=== PATIENT | male | born 1975 | race Two or more races ===

== ENCOUNTER → 2024-02-09 | Outpatient (CLI) | payer MEDICAID ==
[~2024-02-09] VITALS: Ht 170.2 cm; Wt 68.0 kg
[~2024-02-09] MED LIST: GLIP10TA21; INSUPOW; LISI-275; METF100097; OMEG100062; SIMV80TA17
[2024-02-09] MEDS: REGADENOSON 0.4 MG/5 ML SYRG IV ONE ×2 (10:06)
== END | disposition home or self-care (01) ==
LOC: XYW 08:16
PROVIDERS: ATTEND Internal Medicine
DX: I99.8 Other disorder of circulatory system (principal); R07.9 Chest pain, unspecified; I11.9 Hypertensive heart disease without heart failure; R00.0 Tachycardia, unspecified; J45.909 Unspecified asthma, uncomplicated; E66.9 Obesity, unspecified; R09.89 Other specified symptoms and signs involving the circulatory and respiratory systems; Z68.42 Body mass index [BMI] 45.0-49.9, adult
CPT/HCPCS: 78452; A9500; J2785; 93017